=== PATIENT | female | born 1950 | race Hispanic/Latino ===

== ENCOUNTER 2017-08-11 16:50 | Observation (INO) | payer OTHER ==
[~2017-08-11] VITALS: Ht 152.4 cm; Wt 65.9 kg
[2017-08-11 18:17] LABS: HEMATOCRIT 38.7 % (36.0-46.0); HEMOGLOBIN 13.1 G/DL (11.9-15.5); MCH 31.3 PG (29.0-34.0); MCHC 33.9 G/DL (30.0-36.0); MCV 92.6 FL (83-99); PLATELET COUNT 203 K/uL (156-360); RBC DIS.WIDTH-CV 13.5 % (11.8-14.6); RBC DIS.WIDTH-SD 46.1 % (39-53); RED BLOOD COUNT 4.18 M/uL (3.80-5.20); WHITE BLOOD COUNT 12.9 K/uL (4.1-10.2)
[2017-08-11 18:26] LABS: CHLORIDE 109 mEq/L (99-109); POTASSIUM 4.5 mEq/L (3.7-5.4); SODIUM 144 mEq/L (136-147)
[2017-08-11 18:27] LABS: GLUCOSE 95 mg/dL (70-99)
[2017-08-11 18:31] LABS: CREATININE 0.9 mg/dL (0.6-1.3)
[2017-08-11 18:32] LABS: UREA NITROGEN (BUN) 10 mg/dL (9-23)
[2017-08-11 18:33] LABS: GFR ESTIMATE (CALCULATED) > 59 mL/min/
[2017-08-11] MEDS ORDERED: ATENOLOL100 MG PO (21:59)
[2017-08-11] MEDS ORDERED: OMEGA 3 500 SO1 EACH PO (21:59)
[2017-08-11] MEDS ORDERED: ATIVAN1 MG PO (22:00)
[2017-08-12 00:01] LABS: TROP-I INTERPRETATION NEGATIVE; TROPONIN-I < 0.01 ng/mL (0.0-0.30)
[2017-08-12 00:38] VITALS: BP 166/70
[2017-08-12 01:39] LABS: HDL CHOLESTEROL 51 MG/DL (Desirable>=50); LDL CHOLESTEROL 155 mg/dL (Desirable<100); NON-HDL CHOLESTEROL 185 mg/dL (Desirable<160); TOTAL CHOLESTEROL 236 mg/dL (Desirable<200); TRIGLYCERIDES 152 MG/DL (Normal: <150)
[2017-08-12 05:37] LABS: HEMATOCRIT 36.7 % (36.0-46.0); HEMOGLOBIN 12.2 G/DL (11.9-15.5); MCH 30.6 PG (29.0-34.0); MCHC 33.2 G/DL (30.0-36.0); PLATELET COUNT 200 K/uL (156-360); RBC DIS.WIDTH-CV 13.5 % (11.8-14.6); RED BLOOD COUNT 3.99 M/uL (3.80-5.20); WHITE BLOOD COUNT 12.8 K/uL (4.1-10.2)
[2017-08-12 06:02] LABS: ALBUMIN 3.6 G/DL (3.2-4.8); ALKALINE PHOSPHATASE 74 IU/L (3-129); ALT (GPT) 75 IU/L (3-49); AST (GOT) 38 IU/L (2-34); CHLORIDE 107 MEQ/L (99-109); CREATININE 0.8 MG/DL (0.6-1.3); GFR ESTIMATE (CALCULATED) > 59 mL/min/; GLUCOSE 81 mg/dL (70-99); POTASSIUM 3.9 MEQ/L (3.7-5.4); SODIUM 143 MEQ/L (136-147); TOTAL BILIRUBIN 0.3 MG/DL (0.0-1.0); TOTAL PROTEIN 6.5 G/DL (6.4-8.3); UREA NITROGEN (BUN) 11 mg/dL (9-23)
[2017-08-12 08:49] LABS: THYROTROPIN (TSH) 18.3 MIU/L (0.4-5.5)
[2017-08-12 09:00] VITALS: BP 140/65
[2017-08-12 09:10] LABS: FREE T3 3.1 pg/mL (2.3-4.2)
[2017-08-12 11:50] VITALS: BP 145/64
[2017-08-12 14:04] VITALS: BP 139/65
[2017-08-12 15:19] VITALS: BP 158/63
[2017-08-12 20:15] VITALS: BP 149/70
[2017-08-13 04:18] VITALS: BP 123/59
[2017-08-13 05:33] LABS: HEMATOCRIT 38.3 % (36.0-46.0); HEMOGLOBIN 12.5 G/DL (11.9-15.5); MCH 30.1 PG (29.0-34.0); MCHC 32.6 G/DL (30.0-36.0); MCV 92.3 FL (83-99); PLATELET COUNT 206 K/uL (156-360); RBC DIS.WIDTH-CV 13.3 % (11.8-14.6); RBC DIS.WIDTH-SD 45.8 % (39-53); RED BLOOD COUNT 4.15 M/uL (3.80-5.20); WHITE BLOOD COUNT 11.8 K/uL (4.1-10.2)
[2017-08-13 07:07] VITALS: BP 146/69
[2017-08-13] MEDS ORDERED: AMLODIPINE BESYL5 MG PO (09:13)
[2017-08-13] MEDS ORDERED: ATORVASTATIN CA40 MG PO (09:13)
[2017-08-13] MEDS ORDERED: ASPIR-LOW81 MG PO (09:13)
[2017-08-13] MEDS ORDERED: LEVOTHYROXINE50 MCG PO (09:13)
[2017-08-13 09:27] LABS: HEMOGLOBIN A1c (GLYCOHEMOGLOB) 5.9 % (Below 5.7)
[2017-08-13 09:28] LABS: HEMOGLOBIN A1c (GLYCOHEMOGLOB) 5.9 % (Below 5.7)
== END 2017-08-13 11:58 | disposition home or self-care (01) ==
LOC: EME 16:50 → EDOF 22:55 → ENRESERV 22:57 → 4SOUTH 08-12 00:33
PROVIDERS: Internal Medicine
PROC: B246ZZZ Ultrasonography of Right and Left Heart (ICD-10-PCS; principal; 2017-08-13)
DX: R20.0 Anesthesia of skin (principal); R51 Headache; I10 Essential (primary) hypertension; E03.9 Hypothyroidism, unspecified; E04.1 Nontoxic single thyroid nodule; E78.5 Hyperlipidemia, unspecified; G47.00 Insomnia, unspecified; F17.210 Nicotine dependence, cigarettes, uncomplicated; Z86.73 Personal history of transient ischemic attack (TIA), and cerebral infarction without residual deficits; Z90.49 Acquired absence of other specified parts of digestive tract; D72.829 Elevated white blood cell count, unspecified
CPT/HCPCS: 70450; 70491; 70496; 70498; 70551; 71046; 80048; 80053; 80061; 82607; 82948; 83036; 84439; 84443; 84481; 84484; 85027; 93005; 93306; 99281; 99285; G0378; J1644; J2405